=== PATIENT | male | born 1960 | race Caucasian/White ===

== ENCOUNTER → 2017-10-25 | Outpatient (CLI) | payer OTHER | LOC: ULTRA 14:32 | DX: K76.0 Fatty (change of) liver, not elsewhere classified (principal); Z87.19 Personal history of other diseases of the digestive system ==

== ENCOUNTER → 2021-08-30 | Outpatient (CLI) | payer OTHER | LOC: SJCVCIMAG 06:26 | PROVIDERS: ATTEND Internal Medicine Cardiovascular Disease | DX: R06.02 Shortness of breath (principal) ==